=== PATIENT | male | born 1940 | race Caucasian/White ===

== ENCOUNTER 2023-01-01 05:54 | Day surgery (SDC) | payer MEDICARE ==
[2022-12-29 13:16] LABS: BASOPHILS % (AUTO) 0.4 % (0.0-5.0); EOSINOPHILS % (AUTO) 5.3 % (0.0-8.0); HEMATOCRIT 37.4 % (42-54); LYMPHOCYTES % (AUTO) 19.1 % (21.0-51.0); MEAN CORPUSCULAR HEMOGLOBIN 33.6 pg (27.0-33.0); MEAN CORPUSCULAR HGB CONC 33.7 g/dL (32.0-36.0); MEAN CORPUSCULAR VOLUME 99.7 fL (79-99); MONOCYTES % (AUTO) 11.6 % (3.0-13.0); NEUTROPHILS % (AUTO) 63.1 % (40.0-77.0); PLATELET COUNT (AUTO) 165 K/uL (130-400); RED BLOOD CELL COUNT(AUTO) 3.75 MIL/uL (4.50-6.20); WHITE BLOOD COUNT (AUTO) 5.7 K/uL (4.8-10.8)
[2022-12-29 13:25] LABS: CREATININE 0.9 mg/dL (0.5-1.5); POTASSIUM 4.8 mmol/L (3.5-5.1)
[2022-12-29 13:26] LABS: INR 1.03 (0.85-1.15); PROTHROMBIN TIME 11.2 SEC (9.6-11.6)
[2022-12-29 13:28] LABS: PARTIAL THROMBOPLASTIN TIME 30.2 SEC (26.3-35.5)
[2022-12-29 14:59] VITALS: BP 112/56
[~2023-01-01] VITALS: Ht 177.8 cm; Wt 76.5 kg
[~2023-01-01 05:54] MED LIST: AEC81 PO; ATOR-2 PO; DOXA2TAB2 PO; RIVA20TA PO; SOTA80TA PO; TADA10TA14 PO
== END 2023-01-01 06:55 | disposition home or self-care (01) ==
LOC: DAH 05:54 → CLH 05:54
PROVIDERS: ATTEND Internal Medicine
DX: I48.91 Unspecified atrial fibrillation (principal); Z20.822 Contact with and (suspected) exposure to COVID-19; R94.31 Abnormal electrocardiogram [ECG] [EKG]; Z79.01 Long term (current) use of anticoagulants; Z79.899 Other long term (current) drug therapy; Z53.8 Procedure and treatment not carried out for other reasons
CPT/HCPCS: 36415; 80048; 85025; 85610; 85730; 87426; 93005

== ENCOUNTER 2024-11-20 09:55 | Emergency (ER) | payer MEDICARE ==
[~2024-11-20] VITALS: Ht 177.8 cm; Wt 73.5 kg
[~2024-11-20 09:55] MED LIST changes: -AEC81 PO; +AMIO200T68 PO; +AMOX1TAB16 PO; +ASPI-1197 PO; -DOXA2TAB2 PO; +DOXA4TAB3 PO; +FURO20TA4 PO; +MAGN400T56 PO; +METO25 PO; +NITR0.4T50 SL; +POTA-202 PO; -SOTA80TA PO; -TADA10TA14 PO
[2024-11-20 10:42] LABS: BASOPHILS # (AUTO) 0.02 K/uL (0.00-0.20); BASOPHILS % (AUTO) 0.2 % (0.0-5.0); EOSINOPHILS % (AUTO) 2.1 % (0.0-8.0); HEMATOCRIT 37.2 % (42-54); IMMATURE GRANULOCYTE ABSOLUTE 0.08 K/uL (0-1); LYMPHOCYTES # (AUTO) 0.3 K/uL (1.0-4.8); LYMPHOCYTES % (AUTO) 3.4 % (21.0-51.0); MEAN CORPUSCULAR HEMOGLOBIN 32.6 pg (27.0-33.0); MEAN CORPUSCULAR HGB CONC 32.8 g/dL (32.0-36.0); MEAN CORPUSCULAR VOLUME 99.5 fL (79-99); MONOCYTES # (AUTO) 0.9 K/uL (0.1-1.0); MONOCYTES % (AUTO) 9.6 % (3.0-13.0); NEUTROPHILS % (AUTO) 83.9 % (40.0-77.0); PLATELET COUNT (AUTO) 149 K/uL (130-400); RED BLOOD CELL COUNT(AUTO) 3.74 MIL/uL (4.50-6.20); RED CELL DISTRIBUTION WIDTH 12.8 % (11.0-15.5); WHITE BLOOD COUNT (AUTO) 9.5 K/uL (4.8-10.8)
[2024-11-20 10:56] LABS: POTASSIUM 4.8 mmol/L (3.5-5.1)
[2024-11-20 10:58] LABS: INR 1.15 (0.85-1.15); PROTHROMBIN TIME 12.7 SEC (9.6-11.6)
[2024-11-20 10:59] LABS: PARTIAL THROMBOPLASTIN TIME 33.3 SEC (26.3-35.5)
[2024-11-20 11:18] LABS: B-TYPE NATRIURETIC PEPTIDE 94 pg/mL (0-100)
--- NOTE | 2024-11-20 11:35 | ERN ---
General Chief Complaint: Congestion Stated Complaint: COUGH\CONGESTION Time Seen by MD: 09:57 Source: patient History of Present Illness Allergies: Coded Allergies: No Known Allergies (Unverified Allergy, Unknown, 12/29/22) Home Meds Active Scripts Nitroglycerin (Nitroglycerin) 0.4 Mg Tab.subl, 1 TAB SL AD for chest pain, #25 TAB 1 Refill 1st sign of attack; may repeat every 5 mins; if pain persists after 3 in 15 min, medical attention is recommended Prov:MAKENZIE JUAN MD 11/18/24 Magnesium Oxide (Magnesium Oxide) 400 Mg (241.3 Mg Magnesium) Tablet, 1 TAB PO DAILY for 30 Days, #30 TAB 1 Refill Prov:MAKENZIE JUAN MD 11/18/24 Potassium Chloride (Potassium Chloride) 20 Meq Tab.er.prt, 1 TAB PO DAILY for 30 Days, #30 TAB 1 Refill Prov:MAKENZIE JUAN MD 11/18/24 Furosemide (Furosemide) 20 Mg Tablet, 1 TAB PO BID for 30 Days, #60 TAB 1 Refill Prov:MAKENZIE JUAN MD 11/18/24 Amoxicillin/Potassium Clav (Amox Tr-K Clv 875-125 mg Tab) 875 Mg-125 Mg Tablet, 1 TAB PO BID for 5 Days, #10 TAB 0 Refills Prov:MAKENZIE JUAN MD 11/18/24 Amiodarone HCl (Amiodarone HCl) 200 Mg Tablet, 1 TAB PO DAILY for 30 Days, #30 TAB 1 Refill Prov:MAKENZIE JUAN MD 11/18/24 Metoprolol Tartrate (Lopressor) 25 Mg Tab, 25 MG PO TID for 30 Days, #90 TAB 1 Refill Prov:MAKENZIE JUAN MD 11/18/24 Reported Medications Aspirin (Aspirin) 81 Mg Tab.chew, 81 MG PO DAILY, TAB.CHEW 11/15/24 Atorvastatin Calcium (Atorvastatin Calcium) 80 Mg Tablet, 80 MG PO DAILY, TAB 11/15/24 Doxazosin Mesylate (Doxazosin Mesylate) 4 Mg Tablet, 4 MG PO BID, TAB 11/15/24 Rivaroxaban (Xarelto) 20 Mg Tablet, 20 MG PO DAILY, TAB 11/15/24 Discontinued Reported Medications Sotalol HCl (Sotalol) 80 Mg Tablet, 80 MG PO BID, TAB 11/15/24 Aspirin (ASPIRIN 81 MG ECTAB) 81 Mg Ectab, 81 MG PO DAILY, TAB.EC 12/29/22 Atorvastatin Calcium (Atorvastatin Calcium) 80 Mg Tablet, 80 MG PO HS, TAB 12/29/22 Doxazosin Mesylate (Doxazosin Mesylate) 2 Mg Tablet, 2 MG PO HS, TAB 12/29/22 Rivaroxaban (Xarelto) 20 Mg Tablet, 20 MG PO HS, TAB 12/29/22 Sotalol HCl (Sotalol) 80 Mg Tablet, 80 MG PO BID, TAB 12/29/22 Tadalafil (Tadalafil) 10 Mg Tablet, 10 MG PO AD, TAB 12/29/22 Past Medical History Past Medical History: A-Fib Past Surgical History: None Results Laboratory and Microbiology Lab and Micro Result Laboratory Tests Test 11/20/24 10:33 11/20/24 11:34 White Blood Count 9.5 K/uL (4.8-10.8) Red Blood Count 3.74 MIL/uL (4.50-6.20) L Hemoglobin 12.2 g/dL (14.0-18.0) L Hematocrit 37.2 % (42-54) L Mean Corpuscular Volume 99.5 fL (79-99) H Mean Corpuscular Hemoglobin 32.6 pg (27.0-33.0) Mean Corpuscular Hemoglobin Concent 32.8 g/dL (32.0-36.0) Red Cell Distribution Width 12.8 % (11.0-15.5) Platelet Count 149 K/uL (130-400) # Mean Platelet Volume 10.6 fL (7.5-10.5) H Immature Granulocyte % (Auto) 0.8 % (0-1) Neutrophils (%) (Auto) 83.9 % (40.0-77.0) H Lymphocytes (%) (Auto) 3.4 % (21.0-51.0) L Monocytes (%) (Auto) 9.6 % (3.0-13.0) Eosinophils (%) (Auto) 2.1 % (0.0-8.0) Basophils (%) (Auto) 0.2 % (0.0-5.0) Neutrophils # (Auto) 8.0 K/uL (1.8-7.7) H Lymphocytes # (Auto) 0.3 K/uL (1.0-4.8) L Monocytes # (Auto) 0.9 K/uL (0.1-1.0) Eosinophils # (Auto) 0.20 K/uL (0.00-0.70) Basophils # (Auto) 0.02 K/uL (0.00-0.20) Absolute Immature Granulocyte (auto 0.08 K/uL (0-1) Nucleated Red Blood Cells 0.0 % (0.0-0.19) White Cell Morphology Comment See comments Prothrombin Time 12.7 SEC (9.6-11.6) H Prothromb Time International Ratio 1.15 (0.85-1.15) Activated Partial Thromboplast Time 33.3 SEC (26.3-35.5) Sodium Level 138 mmol/L (136-145) Potassium Level 4.8 mmol/L (3.5-5.1) Chloride Level 103 mmol/L (101-111) Carbon Dioxide Level 29 mmol/L (21-32) Blood Urea Nitrogen 18 mg/dL (7-18) Creatinine 1.0 mg/dL (0.5-1.3) Glomerular Filtration Rate Calc 74 mL/min (>90) Random Glucose 99 mg/dL (70-105) Total Calcium 9.1 mg/dL (8.5-10.1) Total Creatine Kinase 36 U/L (21-232) Troponin I High Sensitivity 11 ng/L (4-75) B-Type Natriuretic Peptide 94 pg/mL (0-100) Influenza Type A Antigen Positive For Type A Influenza Type B Antigen Negative For Type B SARS-CoV-2, RNA, NAAT NEGATIVE SARS CoV-2 Group A Streptococcus Rapid negative (NEGATIVE) Labs Reviewed?: Yes EKG/XRAY/US/CT/MRI EKG Comment 11/20/2024 time 10:53 a.m. Ventricular rate 75 Sinus rhythm [place] [address] wave elevation or depression X-RAY Comment [place] [id number] [address] IMAGING REPORT Signed PATIENT: CHELITA COHEN MR#: [id number] : 1940 SEX: M AGE: 84 LOCATION: [facility] ORDER 1006 STATUS: REG ER REPORT#: [id number] SERVICE 1005 REASON: cough ORDERING PHYSICIAN: ARDEN ZAMARRIPA MD PROCEDURE: CXR1VW - CHEST 1VW CHEST 1VW REASON: cough COMPARISON: 11/18/2024 FINDINGS: Single view of the chest was obtained. Lungs are clear. Heart size is normal. There is no pulmonary vascular congestion. Mediastinum and bony thorax appear unremarkable. IMPRESSION: 1. Normal single view chest x-ray. DICTATED BY: KOLE ANTHONY MD DATE: 11/20/24 1146 ELECTRONICALLY SIGNED BY: KOLE ANTHONY MD DATE: 11/20/24 1148 MDM MDM: Differential diagnosis: COVID, flu, CHF, COPD Patient is a an 84-year-old gentleman coming in to be evaluated for cough. Patient states that the symptoms began a couple of days ago. Upon evaluation in triage symptoms within normal limits. Cardiac workup negative for acute findi ngs. Patient was positive for influenza A we will be discharged with Tamiflu and symptomatic medication for cough. I advised him toes follow up with PCP in 1-2 days for ongoing evaluation and management. Throughout ER visit patient has been stable will be discharged in stable condition. ED Course Orders Procedure Category Date Status Time Cbc With Differential LAB 11/20/24 Complete 10:05 Prothrombin Time With LAB 11/20/24 Complete INR 10:05 B-Type Natriuretic LAB 11/20/24 Complete Peptide 10:05 Chest 1vw RAD 11/20/24 Resulted 10:05 12 Lead Ekg Tracing- EKG 11/20/24 Logged Technical 10:05 Creatine Kinase, Total LAB 11/20/24 Complete 10:05 Troponin I High LAB 11/20/24 Complete Sensitivity 10:05 Urinalysis Profile LAB 11/20/24 Logged 10:05 Partial LAB 11/20/24 Complete Thromboplastin Time 10:05 Basic Metabolic Panel LAB 11/20/24 Complete 10:05 Covid Rna Naat LAB 11/20/24 Complete 10:05 Influenza Type A & B, LAB 11/20/24 Complete Rapid 10:05 Rapid (Group A Strep) LAB 11/20/24 Complete 10:05 Acetaminophen-Codeine PHA 11/20/24 Verified Elixer (Tylenol-Co 12:42 Vital Signs Date Time Temp Pulse Resp B/P (MAP) Pulse Ox O2 Delivery O2 Flow Rate FiO2 11/20/24 11:43 99.0 74 20 130/70 96 Room Air* 0 21 11/20/24 09:57 97.9 78 16 128/69 97 Room Air* 0 21 11/20/24 09:57 97.9 78 16 128/69 98 0 DX & DISP Disposition: Discharge Departure Impression: Primary Impression: Influenza A Condition: Stable Scripts Dextromethorphan HBr (Tussin Cough) 15 Mg/5 Ml Liquid 15 MG PO BID PRN for cough for 5 Days, #100 ML Prov: ARDEN ZAMARRIPA MD 11/20/24 Oseltamivir Phosphate (Tamiflu) 75 Mg Cap 1 CAP PO BID for 5 Days, #10 CAP 0 Refills Prov: ARDEN ZAMARRIPA MD 11/20/24 Additional Instructions: FOLLOW-UP WITH PRIMARY CARE PROVIDER IN 1 TO 2 DAYS. TAKE MEDICATIONS DIRECTED HERE IN THE EMERGENCY ROOM. OKAY TO CONTINUE HOME MEDICATIONS UNLESS OTHERWISE DISCUSSED DURING YOUR VISIT IN THE EMERGENCY ROOM TODAY. RETURN TO YOUR NEAREST EMERGENCY ROOM IF SYMPTOMS WORSEN OR IF THERE IS NO IMPROVEMENT. CALL 911 IF YOU NEED IMMEDIATE ASSISTANCE. TAKE TYLENOL AMHE-SKU-IADJUVD NEEDED AND IF NO CONTRAINDICATIONS ARE PRESENT. INCREASE ORAL HYDRATION. A WOUND CULTURE OR URINE CULTURE WAS ORDERED HERE IN THE EMERGENCY ROOM DEPARTMENT PLEASE FOLLOW-UP WITH PRIMARY CARE PROVIDER AND ADVISE THEM TO GET REPEAT PORTS FROM OUR FACILITY. IF YOU HAD ANY NARAYNA WRAP/SPLINTS THAT WERE APPLIED HERE, PLEASE DO NOT REMOVE THEM UNTIL YOU SEE YOUR PRIMARY CARE OR SPECIALTY. Referrals: Referrals: SILVER EDWARD (PCP) Time of Disposition: 12:45 ARDEN ZAMARRIPA MD Nov 20, 2024 11:35
--- NOTE | 2024-11-20 11:48 | HMCIMG ---
CHEST 1VW REASON: cough COMPARISON: 11/18/2024 FINDINGS: Single view of the chest was obtained. Lungs are clear. Heart size is normal. There is no pulmonary vascular congestion. Mediastinum and bony thorax appear unremarkable. IMPRESSION: 1. Normal single view chest x-ray.
[2024-11-20 11:57] LABS: RAPID GROUP A STREP negative (NEGATIVE)
[2024-11-20 12:01] LABS: SARS-CoV-2, RNA, NAAT NEGATIVE SARS CoV-2 (NEGATIVE)
[2024-11-20 12:07] LABS: INFLUENZA TYPE B Negative For Type B (NEGATIVE)
[2024-11-20 12:21] LABS: INFLUENZA TYPE A Positive For Type A (NEGATIVE)
[2024-11-20] MEDS ORDERED: DEXT15LI31 PO (12:46)
[2024-11-20] MEDS ORDERED: OSEL75 PO (12:46)
[2024-11-20 12:49] VITALS: BP 124/69; PULSE 72; RESP 18; TEMP 98.5; O2SAT 97
[2024-11-20] MEDS: acetaMINOPHEN/coDEINE 120/12MG 5ML PO STA (12:49)
--- NOTE | 2024-11-20 14:27 | EKG ---
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
== END 2024-11-20 12:55 | disposition home or self-care (01) ==
LOC: EDH 09:55
DX: J10.1 Influenza due to other identified influenza virus with other respiratory manifestations (principal); I48.91 Unspecified atrial fibrillation; Z79.01 Long term (current) use of anticoagulants; Z79.82 Long term (current) use of aspirin; Z79.899 Other long term (current) drug therapy; Z20.822 Contact with and (suspected) exposure to COVID-19
CPT/HCPCS: 36415; 71045; 80048; 82550; 83880; 84484; 85025; 85610; 85730; 87635; 87804; 87880; 93005; 99285

== ENCOUNTER → 2024-12-04 | Outpatient (CLI) | payer MEDICARE ==
[~2024-12-04] MED LIST changes: +DEXT15LI31 PO; +OSEL75 PO
[2024-12-04 16:17] LABS: BASOPHILS # (AUTO) 0.07 K/uL (0.00-0.20); BASOPHILS % (AUTO) 0.7 % (0.0-5.0); EOSINOPHILS # (AUTO) 0.27 K/uL (0.00-0.70); EOSINOPHILS % (AUTO) 2.8 % (0.0-8.0); HEMATOCRIT 35.8 % (42-54); LYMPHOCYTES # (AUTO) 1.2 K/uL (1.0-4.8); MEAN CORPUSCULAR HEMOGLOBIN 31.6 pg (27.0-33.0); MEAN CORPUSCULAR HGB CONC 32.4 g/dL (32.0-36.0); MEAN CORPUSCULAR VOLUME 97.5 fL (79-99); MONOCYTES # (AUTO) 1.3 K/uL (0.1-1.0); MONOCYTES % (AUTO) 12.7 % (3.0-13.0); NEUTROPHILS # (AUTO) 6.6 K/uL (1.8-7.7); NEUTROPHILS % (AUTO) 67.7 % (40.0-77.0); PLATELET COUNT (AUTO) 284 K/uL (130-400); RED BLOOD CELL COUNT(AUTO) 3.67 MIL/uL (4.50-6.20); RED CELL DISTRIBUTION WIDTH 12.6 % (11.0-15.5); WHITE BLOOD COUNT (AUTO) 9.8 K/uL (4.8-10.8)
[2024-12-04 16:42] LABS: CREATININE 0.9 mg/dL (0.5-1.3); MAGNESIUM 1.9 mg/dL (1.80-2.40); POTASSIUM 5.2 mmol/L (3.5-5.1)
== END | disposition home or self-care (01) ==
LOC: LAB 12:56
PROVIDERS: ATTEND Internal Medicine
DX: I25.10 Atherosclerotic heart disease of native coronary artery without angina pectoris (principal); I48.0 Paroxysmal atrial fibrillation
CPT/HCPCS: 36415; 80048; 83735; 83880; 85025